=== PATIENT | female | born 1970 | race Caucasian/White ===

== ENCOUNTER 2017-02-25 02:24 | Observation (INO) | payer MEDICAID ==
[2017-02-25] VITALS (7 sets, daily range): BP systolic 113–121; BP diastolic 58–69; PULSE 71–80; RESP 15–18; TEMP 98.5–98.6; O2SAT 98–100
[~2017-02-25] VITALS: Ht 170.2 cm; Wt 104.5 kg
[~2017-02-25 02:24] MED LIST: ASPI81CH3; NEUR300C PO; RISP3TAB2; TRAZ100 PO
[2017-02-25] MEDS ORDERED: TRAZ100T6 PO (02:46)
[2017-02-25] MEDS ORDERED: RISP2TAB2 PO (02:46)
[2017-02-25] MEDS ORDERED: COGE1INJ PO (02:46)
--- NOTE | 2017-02-25 03:15 | PD ---
HPI Chief Complaint: Chest Pain Time Seen by Provider: 03:03 Travel History International Travel<30 days: No Contact w/Intl Traveler<30days: No Traveled to known affect area: No History of Present Illness HPI 46-year-old female came to the emergency room brought by EMS with history of chest pain. Patient says she has had no chest pain 2 weeks and gets worse on exertion like walking. Today she was moving when the pain got worse and she called 911. She points to the left side of her chest. No radiation. Currently her pain is 0 out of 10. No history of shortness of breath or syncopal episode. Patient says she has never had any stress test or any cardiac workup. Patient says both her mom and dad blockages. She is not a smoker. [facility] Past Medical History Narrative Medical List of her past medical, surgical, social and family history was reviewed from the nursing note. Asthma: No Autoimmune Disease: No Blood Disorders: No Bipolar Disorder: Yes Anxiety: Yes Depression: Yes Cancer: No Cardiovascular Problems: No COPD: No Diabetes: No Diminished Hearing: No Endocrine: No Glaucoma: No Genitourinary: No Immune Disorder: No Musculoskeletal: No Neurologic: No Psychiatric: Yes (ANXIETY DISORDER) Respiratory: No Sickle Cell Disease: No Sleep Apnea: No Thyroid Disease: No ?: Not LMP: 01/23/2017 Menopausal: No : 3 Para: 2 Tubal Ligation: Yes Past Surgical History Abdominal Surgery: No Cardiac Surgery: No Section: Yes Ear Surgery: No Endocrine Surgery: No Eye Surgery: No Genitourinary Surgery: No Gynecologic Surgery: Yes (3 C-SECTIONS) Oral Surgery: No Thoracic Surgery: No Social History Alcohol Use: No Tobacco Use: No Substance Use: Yes (CRACK COCAINE X 2 YEARS AGO, SOME MARIJUANA) Allergies-Medications (Allergen,Severity, Reaction): Coded Allergies: Ampicillin (Verified Allergy, Severe, Anaphylaxis, 02/25/17) Prolixin (Verified Allergy, Severe, SOB, 02/25/17) Vistaril (Verified Allergy, Severe, SOB, 02/25/17) Comments List of her allergies reviewed from the nursing note. Reported Meds & Prescriptions Reported Meds & Active Scripts Active Reported Benztropine (Benztropine Mesylate) 0.5 Mg Tab 2 Mg PO BID Trazodone (Trazodone HCl) 100 Mg Tablet 100 Mg PO HS Risperidone 2 Mg Tab 2 Mg PO HS Narrative Medication List of her home medications reviewed from the nursing note. Review of Systems Except as stated in HPI: all other systems reviewed are Neg Physical Exam Narrative GENERAL: Awake, alert, no obvious distress SKIN: Focused skin assessment warm/dry. HEAD: Atraumatic. Normocephalic. EYES: Pupils equal and round. No scleral icterus. No injection or drainage. ENT: No nasal bleeding or discharge. Mucous membranes pink and moist. NECK: Trachea midline. No JVD. CARDIOVASCULAR: Regular rate and rhythm. No murmur appreciated. RESPIRATORY: No accessory muscle use. Clear to auscultation. Breath sounds equal bilaterally. GASTROINTESTINAL: Abdomen soft, non-tender, nondistended. Hepatic and splenic margins not palpable. MUSCULOSKELETAL: No obvious deformities. No clubbing. No cyanosis. No edema. NEUROLOGICAL: Awake and alert. No obvious cranial nerve deficits. Motor grossly within normal limits. Normal speech. PSYCHIATRIC: Appropriate mood and affect; insight and judgment normal. Data Data Last Documented VS Orders Electrocardiogram (02/25/17 03:17) Basic Metabolic Panel (Bmp) (02/25/17 03:17) Ckmb (Isoenzyme) Profile (02/25/17 03:17) Complete Blood Count With Diff (02/25/17 03:17) Magnesium (Mg) (02/25/17 03:17) Prothrombin Time / Inr (Pt) (02/25/17 03:17) Act Partial Throm Time (Ptt) (02/25/17 03:17) Troponin I (02/25/17 03:17) Chest, Single Ap (02/25/17 03:17) Ecg Monitoring (02/25/17 03:17) Bilateral Bp Monitoring (02/25/17 03:17) Iv Access Insert/Monitor (02/25/17 03:17) Oximetry (02/25/17 03:17) Oxygen Administration (02/25/17 03:17) Aspirin Chew (Aspirin Chew) (02/25/17 03:30) Sodium Chloride 0.9% Flush (Ns Flush) (02/25/17 03:30) CKMB (02/25/17 03:25) CKMB% (02/25/17 03:25) Potassium Chloride Eff (K-Lyte Cl Eff) (02/25/17 09:00) Admit Order (Ed Use Only) (02/25/17 04:30) Place In Observation (02/25/17 04:30) Activity Bed Rest With Brp (02/25/17 04:30) Vital Signs (Adult) Q4H (02/25/17 04:30) Cardiac Rhythm .As Directed (02/25/17 04:30) Notify Dr: Other .PRN (02/25/17 04:30) Notify Dr. Parameters (02/25/17 04:30) Resp Oxygen Nasal Cannula (02/25/17 ) Diet Heart Healthy (02/25/17 Breakfast) Ckmb (Isoenzyme) Profile (02/25/17 04:30) Ckmb (Isoenzyme) Profile (02/25/17 07:30) Troponin I (02/25/17 04:30) Troponin I (02/25/17 07:30) Electrocardiogram (02/25/17 04:30) Electrocardiogram (02/25/17 07:30) ^ Obtain (02/25/17 04:30) Sodium Chloride 0.9% Flush (Ns Flush) (02/25/17 04:30) Sodium Chloride 0.9% Flush (Ns Flush) (02/25/17 09:00) Acetaminophen (Tylenol) (02/25/17 04:30) Ondansetron Inj (Zofran Inj) (02/25/17 04:30) Valet Cashier / Telemetry FUENTES.Q8H (02/25/17 04:30) CKMB (02/25/17 06:42) CKMB% (02/25/17 06:42) CKMB (02/25/17 08:56) CKMB% (02/25/17 08:56) Labs MDM Medical Decision Making Medical Screen Exam Complete: Yes Emergency Medical Condition: Yes Medical Record Reviewed: Yes Interpretation(s) Twelve-lead EKG was reviewed by me. Normal sinus rhythm, normal axis, nonspecific ST-T wave changes. Heart rate of 79 beats per Differential Diagnosis Chest pain, ACS, atypical chest pain Narrative Course 4:30 AM blood test results of back and within acceptable limit. Given her story admitted to the chest pain center. Cardiologists will work her up. Patient was given 2 baby aspirin's. Procedures EKG Prior to Arrival: Yes Diagnosis Primary Impression: Chest pain Qualified Code: R07.9 - Chest pain, unspecified type Admitting Information Admitting Physician Requests: Observation iNssa Marcus MD Feb 25, 2017 03:15 Concent Red Cell Distribution Width 12.6 % Platelet Count 280 TH/MM3 Mean Platelet Volume 8.9 FL Neutrophils (%) (Auto) 57.7 % Lymphocytes (%) (Auto) 31.6 % Monocytes (%) (Auto) 9.3 % Eosinophils (%) (Auto) 0.7 % Basophils (%) (Auto) 0.7 % Neutrophils # (Auto) 4.6 TH/MM3 Lymphocytes # (Auto) 2.5 TH/MM3 Monocytes # (Auto) 0.7 TH/MM3 Eosinophils # (Auto) 0.1 TH/MM3 Basophils # (Auto) 0.1 TH/MM3 CBC Comment DIFF FINAL Differential Comment Sodium Level 142 MEQ/L Potassium Level 3.3 MEQ/L Chloride Level 106 MEQ/L Carbon Dioxide Level 27.7 MEQ/L Anion Gap 8 MEQ/L Blood Urea Nitrogen 9 MG/DL Creatinine 0.97 MG/DL Estimat Glomerular Filtration 62 ML/MIN Rate Random Glucose 81 MG/DL Calcium Level 9.0 MG/DL Magnesium Level 2.2 MG/DL Total Creatine Kinase 145 U/L Creatine Kinase MB 1.7 NG/ML Troponin I LESS THAN 0.02 NG/ML MDM Medical Decision Making Medical Screen Exam Complete: Yes Emergency Medical Condition: Yes Medical Record Reviewed: Yes Interpretation(s) Twelve-lead EKG was reviewed by me. Normal sinus rhythm, normal axis, nonspecific ST-T wave changes. Heart rate of 79 beats per Differential Diagnosis Chest pain, ACS, atypical chest pain Narrative Course 4:30 AM blood test results of back and within acceptable limit. Given her story admitted to the chest pain center. Cardiologists will work her up. Patient was given 2 baby aspirin's. Procedures EKG Prior to Arrival: Yes Diagnosis Primary Impression: Chest pain Qualified Code: R07.9 - Chest pain, unspecified type Nissa Marcus MD Feb 25, 2017 03:15
[2017-02-25] MEDS ORDERED: ASPIRIN 81 MG CHEW TAB PO ONE (03:30)
[2017-02-25] MEDS ORDERED: SODIUM CHLORIDE 0.9% FLUSH 10 ML FLUSH IVF PRN (03:30)
[2017-02-25 03:59] LABS: AUTOMATED NEUTROPHIL # 4.6 TH/MM3 (1.8-7.7); BASOPHIL # 0.1 TH/MM3 (0-0.2); BASOPHIL % 0.7 % (0.0-2.0); EOSINOPHIL # 0.1 TH/MM3 (0-0.4); EOSINOPHIL % 0.7 % (0.0-4.0); HEMATOCRIT 38.4 % (35.0-46.0); HEMO FLAGS DIFF FINAL; LYMPH % 31.6 % (9.0-44.0); LYMPHOCYTE # 2.5 TH/MM3 (1.0-4.8); MEAN CELL VOLUME 90.1 FL (80.0-100.0); MEAN CORPUSCULAR HEMOGLOBIN 31.6 PG (27.0-34.0); MEAN CORPUSCULAR HGB CONC 35.1 % (32.0-36.0); MONO % 9.3 % (0.0-8.0); NEUT % 57.7 % (16.0-70.0); PLATELET COUNT 280 TH/MM3 (150-450); RED BLOOD COUNT 4.26 MIL/MM3 (4.00-5.30); RED CELL DISTRIBUTION WIDTH 12.6 % (11.6-17.2)
--- NOTE | 2017-02-25 04:06 | RADRPT ---
EXAM DATE/TIME: 02/25/2017 03:31 [facility] COMPARISON: No previous studies available for comparison. INDICATIONS : Left sided chest pain and shortness of breath. MEDICAL HISTORY : None. SURGICAL HISTORY : None. ENCOUNTER: Initial ACUITY: 3 days PAIN SCORE: 7/10 LOCATION: Left chest FINDINGS: A single view of the chest demonstrates the lungs to be symmetrically aerated without evidence of mas s, infiltrate or effusion. The cardiomediastinal contours are unremarkable. Osseous structures are intact. CONCLUSION: No acute disease. Dylon Benitez MD on February 25, 2017 at 4:04 Board Certified Radiologist. This report was verified electronically.
[2017-02-25 04:12] LABS: ANION GAP 8 MEQ/L (5-15); BICARBONATE 27.7 MEQ/L (21.0-32.0); BLOOD UREA NITROGEN 9 MG/DL (7-18); CHLORIDE 106 MEQ/L (98-107); GLOMERULAR FILTRATION RATE 62 ML/MIN (>89); MAGNESIUM 2.2 MG/DL (1.5-2.5); POTASSIUM 3.3 MEQ/L (3.5-5.1); SODIUM (NA) 142 MEQ/L (136-145)
[2017-02-25 04:15] LABS: CREATINE KINASE 145 U/L (26-192)
[2017-02-25 04:27] LABS: CKMB 1.7 NG/ML (0.5-3.6)
[2017-02-25] MEDS ORDERED: ACETAMINOPHEN 500 MG CPLT PO PRN (04:30)
[2017-02-25] MEDS ORDERED: SODIUM CHLORIDE 0.9% FLUSH 10 ML FLUSH IV FLUSH PRN (04:30)
[2017-02-25] MEDS ORDERED: ONDANSETRON HCL 4 MG/2 ML VIAL IV PRN (04:30)
[2017-02-25 04:37] LABS: APTT (PATIENT) 24.5 SEC (24.3-30.1); PROTHROMBIN TIME - PATIENT 11.4 SEC (9.8-11.6)
[2017-02-25 07:36] LABS: CREATINE KINASE 141 U/L (26-192)
[2017-02-25 07:49] LABS: CKMB 1.4 NG/ML (0.5-3.6)
[2017-02-25] MEDS ORDERED: BENZ0.5T PO ×2 (08:51→09:09)
[2017-02-25] MEDS ORDERED: SODIUM CHLORIDE 0.9% FLUSH 10 ML FLUSH IV FLUSH SCH (09:00)
[2017-02-25] MEDS ORDERED: POTASSIUM CHLORIDE 25 MEQ EFFERVESCENT TAB NG SCH (09:00)
--- NOTE | 2017-02-25 09:21 | HHI.HP ---
HPI Primary Care Physician Non-Staff Chief Complaint Chest pain History of Present Illness This is a 46-year-old female that presents to ED with a complaint of 2 weeks of intermittent chest discomfort. She states it occurs at least once a day. Denies being exertional but patient really does nothing strenuous or exertional. When she has the discomfort it will last on average 3 hours. She had times a short of breath with it. No nausea or diaphoresis. Her symptoms last evening began after having an argument with her boyfriend and grabbed her suitcase and other belongings and was dragging it around on the sidewalk when the discomfort occurred. Denies history of coronary disease. Cannot recall ever having a stress test. Denies recent illness. Denies fevers or chills. Denies . Review of Systems General: Patient denies fevers, chills recent, and recent travel HEENT: Patient denies headache, sore throat, difficulty swallowing. Cardiovascular: Has the chest discomfort as mentioned above. Denies sensation of heart beating rapidly or irregularly. No syncope. Respiratory: She is a time short of breath with the discomfort. Denies inspirational chest discomfort. Denies coughing wheezing or hemoptysis. GI: Patient denies nausea, vomiting, diarrhea, abdominal pain, bloody stools. Musculoskeletal: Patient denies joint pain or edema. Denies calf pain or edema. Neurovascular: Patient denies numbness, tingling, weakness in extremities. Denies headache. Endocrine: Denies polyuria and polydipsia. Hematologic: Denies easy bruising. Skin: Denies rash or itching. Past Family Social History Allergies: Coded Allergies: Ampicillin (Verified Allergy, Severe, Anaphylaxis, 02/25/17) Prolixin (Verified Allergy, Severe, SOB, 02/25/17) Vistaril (Verified Allergy, Severe, SOB, 02/25/17) Past Medical History Schizoaffective disorder. Denies hypertension, hyperlipidemia, diabetes, and CAD. Past Surgical History 3. Reported Medications Reported Meds & Active Scripts Active Reported Benztropine (Benztropine Mesylate) 0.5 Mg Tab 2 Mg PO BID Trazodone (Trazodone HCl) 100 Mg Tablet 100 Mg PO HS Risperidone 2 Mg Tab 2 Mg PO HS Active Ordered Medications Current Medications Medications (Trade) Dose Ordered Sig/Shankar Route Start Time Stop Time Status Last Admin (NS Flush) 2 ml UNSCH PRN IVF 02/25/17 03:30 (K-Lyte Cl Eff) 25 meq DAILY NG 02/25/17 09:00 02/25/17 07:47 (NS Flush) 2 ml UNSCH PRN IV FLUSH 02/25/17 04:30 (NS Flush) 2 ml BID IV FLUSH 02/25/17 09:00 02/25/17 07:50 (Tylenol) 500 mg Q4H PRN PO 02/25/17 04:30 (Zofran Inj) 4 mg Q6H PRN IV 02/25/17 04:30 Family History Her mother at age 63 of a myocardial infarction. Social History Patient quit smoking 4 years ago prior that she smoked one pack of cigarettes daily for about 16 years. Denies alcohol or illicit drugs. She states she is disabled secondary to her mental illness. Physical Exam Vital Signs Vital Signs Date Time Temp Pulse Resp B/P Pulse Ox O2 Delivery O2 Flow Rate FiO2 02/25/17 08:12 98.5 71 16 121/58 100 02/25/17 08:00 75 02/25/17 05:25 74 18 113/69 98 Room Air 02/25/17 04:34 98 02/25/17 02:37 98.6 74 16 119/69 98 02/25/17 02:36 98 Room Air Physical Exam GENERAL: This is a well-nourished, well-developed patient, in no apparent distress. Patient speaks in clear complete sentences. Patient is pleasant. Patient was examined with a female utility assembler at the bedside. HEENT: Head is atraumatic and normocephalic. Neck is supple without lymphadenopathy and trachea is midline. No JVD or carotid bruits. CARDIOVASCULAR: Regular rate and rhythm without murmurs, gallops, or rubs. RESPIRATORY: Clear to auscultation. Breath sounds equal bilaterally. No wheezes , rales, or rhonchi. Chest wall is nontender. No use of accessory muscles. GASTROINTESTINAL: Abdomen is nontender, nondistended. Abdomen soft. No obvious pulsatile mass or bruit. No CVA tenderness. Strong femoral pulses bilaterally. Normal bowel sounds in all quadrants. MUSCULOSKELETAL: Patient is moving upper and lower extremities freely. No calf tenderness or edema, no Homans sign. Strong pulses in upper and lower extremities. NEUROLOGICAL: Patient is alert and oriented. Cranial nerves 2-12 are grossly intact. No focal deficits and speech is clear. SKIN: No rash and turgor is normal. Laboratory Laboratory Tests Test 02/25/17 02/25/17 03:25 06:42 White Blood Count 8.0 Red Blood Count 4.26 Hemoglobin 13.5 Hematocrit 38.4 Mean Corpuscular Volume 90.1 Mean Corpuscular Hemoglobin 31.6 Mean Corpuscular Hemoglobin 35.1 Concent Red Cell Distribution Width 12.6 Platelet Count 280 Mean Platelet Volume 8.9 Neutrophils (%) (Auto) 57.7 Lymphocytes (%) (Auto) 31.6 Monocytes (%) (Auto) 9.3 Eosinophils (%) (Auto) 0.7 Basophils (%) (Auto) 0.7 Neutrophils # (Auto) 4.6 Lymphocytes # (Auto) 2.5 Monocytes # (Auto) 0.7 Eosinophils # (Auto) 0.1 Basophils # (Auto) 0.1 CBC Comment DIFF FINAL Differential Comment Prothrombin Time 11.4 Prothromb Time International 1.0 Ratio Activated Partial 24.5 Thromboplast Time Sodium Level 142 Potassium Level 3.3 Chloride Level 106 Carbon Dioxide Level 27.7 Anion Gap 8 Blood Urea Nitrogen 9 Creatinine 0.97 Estimat Glomerular Filtration 62 Rate Random Glucose 81 Calcium Level 9.0 Magnesium Level 2.2 Total Creatine Kinase 145 141 Creatine Kinase MB 1.7 1.4 Troponin I LESS THAN 0.02 LESS THAN 0.02 Result Diagram: 02/25/17 0325 02/25/17 0325 Imaging Last 24 hours Impressions Chest X-Ray 02/25/17316 Signed Impressions: Service Date/Time: Saturday, February 25, 2017 03:31 - CONCLUSION: No acute disease. Dylon Benitez MD Course EKGs have sinus rhythm without significant ST segment depressions or elevations. Assessment and Plan Assessment and Plan * Chest pain: Patient will continue to have serial cardiac enzymes and EKGs for ruling out purposes. She has been seen by Dr. Brito cardiology in the chest pain center. She will likely undergo a Lexiscan as she states she would not be able to walk on a treadmill and be discharged if the stress test is nonischemic. Patient will need to follow-up with her primary care physician which she states is in [place]. * Schizoaffective disorder: Continue current medication. Patient is stable at this time. She is agreeable to this plan. Patrick Anderson Feb 25, 2017 09:21
[2017-02-25 10:31] LABS: CREATINE KINASE 140 U/L (26-192)
[2017-02-25 10:43] LABS: CKMB 1.3 NG/ML (0.5-3.6)
[2017-02-25] MEDS ORDERED: BENZTROPINE MESYLATE 2 MG TAB PO SCH (11:00)
[2017-02-25] MEDS ORDERED: REGADENOSON INJ 0.4 MG/5 ML SYR ONE (12:26)
--- NOTE | 2017-02-25 13:58 | RADRPT ---
EXAM DATE/TIME: 02/25/2017 11:24 [facility] COMPARISON: No previous studies available for comparison. INDICATIONS : Chest pain with dyspnea. Angina. DOSE: 35.0 mCi Tc99m Myoview at stress. 11.0 mCi Tc99m Myoview at rest. 0.4 mg Lexiscan STRESS SYMPTOMS: Weird feeling and heart racing. EJECTION FRACTION: 64% MEDICAL HISTORY : Schizophrenia. SURGICAL HISTORY : section. ENCOUNTER: Initial ACUITY: 2 weeks PAIN SCALE: 5/10 LOCATION: Substernal chest TECHNIQUE: The patient underwent pharmacologic stress with infusion of prescribed dose. Continuous ECG tracing was monitored during stress. Gated SPECT imaging was performed after stress and conventional SPECT i maging was performed at rest. The examination was performed on a SPECT/CT scanner, both attenuation and non-corrected datasets were reviewed. FINDINGS: DISTRIBUTION: The maximum perfused segment at stress is in the anterolateral wall. PERFUSION STUDY: The pattern of perfusion at stress is within normal limits. GATED STUDY: There is intact wall motion and thickening without hypokinetic or dyskinetic segments. CONCLUSION: 1. No reversibility identified to suggest ischemia. 2. Normal wall motion with ejection fraction 64%. RISK CATEGORY: Low (<1% Annual Mortality Rate) Be Rosado MD on February 25, 2017 at 13:54 Board Certified Radiologist. This report was verified electronically.
--- NOTE | 2017-02-25 14:12 | HHI.DCPOC ---
Discharge Care Plan Diagnosis: (1) Chest pain (2) Schizoaffective disorder (3) Hypokalemia Goals to Promote Your Health * To prevent worsening of your condition and complications * To maintain your health at the optimal level Directions to Meet Your Goals Take your medications as prescribed Follow your dietary instruction Follow activity as directed Keep your appointments as scheduled Take your immunizations and boosters as scheduled If your symptoms worsen call your PCP, if no PCP go to Urgent Care Center or Emergency Room Smoking is Dangerous to Your Health. Avoid second hand smoke Call the 24-hour hour crisis hotline for domestic abuse at Patrick Anderson Feb 25, 2017 14:12
--- NOTE | 2017-02-25 15:33 | EKG ---
Date Performed: 02/25/2017 Time Performed: 06:33:25 PTAGE: 46 years EKG: Sinus rhythm NORMAL ECG Since PREVIOUS TRACING , no significant change noted PREVIOUS TRACIN02/25/2017 02.36 DOCTOR: Greer Brito Interpretating Date/Time 02/25/2017 15:32:22
--- NOTE | 2017-02-25 15:33 | EKG ---
Date Performed: 02/25/2017 Time Performed: 08:49:33 PTAGE: 46 years EKG: Sinus rhythm NORMAL ECG Since PREVIOUS TRACING , no significant change noted PREVIOUS TRACIN02/25/2017 06.33 DOCTOR: Greer Brito Interpretating Date/Time 02/25/2017 15:31:32
--- NOTE | 2017-02-25 15:33 | TR ---
Date Performed: 02/25/2017 Time Performed: 12:31:33 DOCTOR: Greer Brito DRUG LIST: CLINICAL HISTORY: REASON FOR TEST: REASON FOR ENDING: OBSERVATION: CONCLUSION: Lexiscan stress test was performed under standard four minute protocol. Radionuclid e was injected one minute prior to ending the test. No electrocardiographic abormalities were present to suggest ischemia. Nuclear imaging and interpretation are pending. COMMENTS:
--- NOTE | 2017-02-25 15:34 | EKG ---
Date Performed: 02/25/2017 Time Performed: 02:36:26 PTAGE: 46 years EKG: Sinus rhythm NORMAL ECG Since PREVIOUS TRACING , no significant change noted PREVIOUS TRACIN06/29/2009 23.47 DOCTOR: Greer Brito Interpretating Date/Time 02/25/2017 15:32:36
[2017-02-25] MEDS ORDERED: risperiDONE 1 MG TAB PO SCH (21:00)
[2017-02-25] MEDS ORDERED: traZODone HCL 100 MG TAB PO SCH (21:00)
== END 2017-02-25 14:44 | disposition home or self-care (01) ==
LOC: NEPE 02:24 → NEDA 04:33 → NEPHCDU 05:37
PROVIDERS: ADMIT Internal Medicine Interventional Cardiology; ATTEND Internal Medicine Interventional Cardiology
DX: R07.89 Other chest pain (principal); E87.6 Hypokalemia; F25.9 Schizoaffective disorder, unspecified; R06.02 Shortness of breath
CPT/HCPCS: 71010; 78452; 80048; 82550; 82552; 83735; 84484; 85025; 85610; 85730; 93005; 93017; 99285; A9502; G0378; J2785

== ENCOUNTER 2017-05-01 01:06 | Emergency (ER) | payer MEDICAID ==
[~2017-05-01] VITALS: Ht 177.8 cm; Wt 105.0 kg
[~2017-05-01 01:06] MED LIST changes: -ASPI81CH3; +BENZ0.5T PO; -NEUR300C PO; +RISP2TAB2 PO; -RISP3TAB2; -TRAZ100 PO; +TRAZ100T6 PO
[2017-05-01 01:09] VITALS: BP 129/76; PULSE 75; RESP 16; TEMP 98.1; O2SAT 97
[2017-05-01] MEDS ORDERED: SODIUM CHLORIDE 0.9% FLUSH 10 ML FLUSH IVF PRN (01:45)
--- NOTE | 2017-05-01 01:51 | PD ---
HPI Chief Complaint: Chest Pain Time Seen by Provider: 01:41 Travel History International Travel<30 days: No Contact w/Intl Traveler<30days: No Traveled to known affect area: No History of Present Illness HPI 46-year-old female with history of schizoaffective disorder, presents to the ER today because of substernal chest pressures, anxiety, and palpitations. She states that she had moved out of where she was living, states that she has a wound on her bottom that just will not heal. She states that she thinks it was because of where she was living. She currently rates the chest discomfort at a 5 out of 10. She denies any coughing, fevers, vomiting, or other issues. Modifying Factors: None Associated Signs & Symptoms: Chest discomfort, anxiety, palpitations Risk Factors: None PFSH Past Medical History Asthma: No Autoimmune Disease: No Blood Disorders: No Bipolar Disorder: Yes Anxiety: Yes Depression: Yes Cancer: No Cardiovascular Problems: No High Cholesterol: Yes COPD: No Diabetes: No Diminished Hearing: No Endocrine: No Gastrointestinal Disorders: No Glaucoma: No Genitourinary: No Immune Disorder: No Musculoskeletal: No Neurologic: No Psychiatric: Yes (ANXIETY DISORDER) Reproductive: No Respiratory: No Immunizations Current: Yes Sickle Cell Disease: No Sleep Apnea: No Thyroid Disease: No Tetanus Vaccination: < 5 Years Influenza Vaccination: Yes ?: Not Menopausal: No : 3 Para: 2 Tubal Ligation: Yes Past Surgical History Abdominal Surgery: No Cardiac Surgery: No Section: Yes Ear Surgery: No Endocrine Surgery: No Eye Surgery: No Genitourinary Surgery: No Gynecologic Surgery: Yes (3 C-SECTIONS) Insulin Pump: No Neurologic Surgery: No Oral Surgery: No Thoracic Surgery: No Other Surgery: No Family History Family Myocardial Infarction: Yes (Mom of [place] at age 63) Social History Alcohol Use: No Tobacco Use: No Substance Use: Yes (CRACK COCAINE X 2 YEARS AGO, SOME MARIJUANA) Allergies-Medications (Allergen,Severity, Reaction): Coded Allergies: ampicillin (Unverified Allergy, Severe, Anaphylaxis, 05/01/17) fluphenazine (Unverified Allergy, Severe, SOB, 05/01/17) hydroxyzine (Unverified Allergy, Severe, SOB, 05/01/17) Reported Meds & Prescriptions Reported Meds & Active Scripts Active Reported Benztropine (Benztropine Mesylate) 0.5 Mg Tab 2 Mg PO BID Trazodone (Trazodone HCl) 100 Mg Tablet 100 Mg PO HS Risperidone 2 Mg Tab 2 Mg PO HS Review of Systems Except as stated in HPI: all other systems reviewed are Neg Physical Exam Narrative GENERAL: Well-developed anxious appearing middle age female patient in mild distress. Awake and oriented 3. SKIN: Focused skin assessment warm/dry. Small healing wound on buttocks with no underlying fluctuance or erythema. HEAD: Atraumatic. Normocephalic. EYES: Pupils equal and round. No scleral icterus. No injection or drainage. ENT: No nasal bleeding or discharge. Mucous membranes pink and moist. NECK: Trachea midline. No JVD. CARDIOVASCULAR: Regular rate and rhythm. No murmur appreciated. RESPIRATORY: No accessory muscle use. Clear to auscultation. Breath sounds equal bilaterally. GASTROINTESTINAL: Abdomen soft, non-tender, nondistended. Hepatic and splenic margins not palpable. MUSCULOSKELETAL: No obvious deformities. No clubbing. No cyanosis. No edema. NEUROLOGICAL: Awake and alert. No obvious cranial nerve deficits. Motor grossly within normal limits. Normal speech. PSYCHIATRIC: Appropriate mood and affect; insight and judgment normal. Data Data Last Documented VS Vital Signs Date Time Temp Pulse Resp B/P (MAP) Pulse Ox O2 Delivery O2 Flow Rate FiO2 05/01/17 01:54 74 15 99 Room Air 05/01/17 01:53 140/67 (91) 05/01/17 01:09 98.1 Orders Orders Basic Metabolic Panel (Bmp) (05/01/17 01:41) Ckmb (Isoenzyme) Profile (05/01/17 01:41) Complete Blood Count With Diff (05/01/17 01:41) Magnesium (Mg) (05/01/17 01:41) Prothrombin Time / Inr (Pt) (05/01/17 01:41) Act Partial Throm Time (Ptt) (05/01/17 01:41) Troponin I (05/01/17 01:41) Chest, Single Ap (05/01/17 01:41) Ecg Monitoring (05/01/17 01:41) Bilateral Bp Monitoring (05/01/17 01:41) Iv Access Insert/Monitor (05/01/17 01:41) Oximetry (05/01/17 01:41) Oxygen Administration (05/01/17 01:41) Sodium Chloride 0.9% Flush (Ns Flush) (05/01/17 01:45) Labs Laboratory Tests Test 05/01/17 01:48 White Blood Count 8.3 TH/MM3 Red Blood Count 4.65 MIL/MM3 Hemoglobin 15.1 GM/DL Hematocrit 43.3 % Mean Corpuscular Volume 93.2 FL Mean Corpuscular Hemoglobin 32.5 PG Mean Corpuscular Hemoglobin Concent 34.9 % Red Cell Distribution Width 12.7 % Platelet Count 305 TH/MM3 Mean Platelet Volume 8.3 FL Neutrophils (%) (Auto) 48.8 % Lymphocytes (%) (Auto) 38.5 % Monocytes (%) (Auto) 10.0 % Eosinophils (%) (Auto) 1.8 % Basophils (%) (Auto) 0.9 % Neutrophils # (Auto) 4.1 TH/MM3 Lymphocytes # (Auto) 3.2 TH/MM3 Monocytes # (Auto) 0.8 TH/MM3 Eosinophils # (Auto) 0.2 TH/MM3 Basophils # (Auto) 0.1 TH/MM3 CBC Comment DIFF FINAL Differential Comment Prothrombin Time 11.1 SEC Prothromb Time International Ratio 1.0 RATIO Activated Partial Thromboplast Time 24.3 SEC Blood Urea Nitrogen 13 MG/DL Creatinine 0.97 MG/DL Random Glucose 82 MG/DL Calcium Level 8.8 MG/DL Magnesium Level 2.3 MG/DL Sodium Level 141 MEQ/L Potassium Level 3.7 MEQ/L Chloride Level 106 MEQ/L Carbon Dioxide Level 27.6 MEQ/L Anion Gap 7 MEQ/L Estimat Glomerular Filtration Rate 62 ML/MIN Total Creatine Kinase 84 U/L Troponin I LESS THAN 0.02 NG/ML [facility] Medical Decision Making Medical Screen Exam Complete: Yes Emergency Medical Condition: Yes Medical Record Reviewed: Yes Interpretation(s) EKG shows NSR, no ST elevation or depression, and no arrhythmias. No significant T-wave inversions. Laboratory Tests Test 05/01/17 01:48 Monocytes (%) (Auto) 10.0 % (0.0-8.0) Estimat Glomerular Filtration Rate 62 ML/MIN (>89) Troponin I LESS THAN 0.02 NG/ML Differential Diagnosis Chest pains: Dysrhythmias versus anxiety attack versus ACS Narrative Course Chest x-ray did not show any signs of acute pulmonary processes. Vital signs are stable in the ER. EKG did not show significant dysrhythmias. Cardiac enzymes was unremarkable. There are no significant metabolic issues. A review of patient's chart shows that she was here recently for stress testing which was unremarkable or low probability. At this point, symptoms are more likely related to anxiety considering that she is having some social stressors currently, had recently moved out of where she was living, has suitcases with her, and appears to be fairly anxious. On reevaluation at 3:30 AM, patient is resting comfortably and states that her symptoms have subsided. At this point, my plan would be to release the patient with follow-up to primary care doctor for workup as an outpatient. Return for any worsening in symptoms as needed. The plan has been discussed with her and she states understanding. Diagnosis Primary Impression: Chest pain Disposition: 01 DISCHARGE HOME Condition: Stable Rony Ardon MD May 01, 2017 01:51
[2017-05-01 01:52] VITALS: RESP 15; O2SAT 99
[2017-05-01 01:53] VITALS: BP 140/67; PULSE 74; RESP 15; O2SAT 99
[2017-05-01 01:56] LABS: AUTOMATED NEUTROPHIL # 4.1 TH/MM3 (1.8-7.7); BASOPHIL # 0.1 TH/MM3 (0-0.2); BASOPHIL % 0.9 % (0.0-2.0); EOSINOPHIL # 0.2 TH/MM3 (0-0.4); EOSINOPHIL % 1.8 % (0.0-4.0); HEMATOCRIT 43.3 % (35.0-46.0); HEMO FLAGS DIFF FINAL; LYMPH % 38.5 % (9.0-44.0); LYMPHOCYTE # 3.2 TH/MM3 (1.0-4.8); MEAN CELL VOLUME 93.2 FL (80.0-100.0); MEAN CORPUSCULAR HEMOGLOBIN 32.5 PG (27.0-34.0); MEAN CORPUSCULAR HGB CONC 34.9 % (32.0-36.0); NEUT % 48.8 % (16.0-70.0); PLATELET COUNT 305 TH/MM3 (150-450); RED BLOOD COUNT 4.65 MIL/MM3 (4.00-5.30); RED CELL DISTRIBUTION WIDTH 12.7 % (11.6-17.2); WHITE BLOOD COUNT 8.3 TH/MM3 (4.0-11.0)
--- NOTE | 2017-05-01 02:08 | RADRPT ---
EXAM DATE/TIME: 05/01/2017 01:58 [facility] COMPARISON: CHEST SINGLE AP, February 25, 2017, 3:31. INDICATIONS : Chest pain x 1 day MEDICAL HISTORY : Hypercholesterolemia. SURGICAL HISTORY : section. ENCOUNTER: Initial ACUITY: 1 day PAIN SCORE: 7/10 LOCATION: Bilateral chest FINDINGS: A single view of the chest demonstrates the lungs to be symmetrically aerated without evidence of mas s, infiltrate or effusion. The cardiomediastinal contours are unremarkable. Osseous structures are intact. CONCLUSION: Normal examination. Everardo Yepez MD on May 01, 2017 at 2:06 Board Certified Radiologist. This report was verified electronically.
[2017-05-01 02:14] LABS: APTT (PATIENT) 24.3 SEC (24.3-30.1); PROTHROMBIN TIME - PATIENT 11.1 SEC (9.8-11.6)
[2017-05-01 02:26] LABS: ANION GAP 7 MEQ/L (5-15); BICARBONATE 27.6 MEQ/L (21.0-32.0); BLOOD UREA NITROGEN 13 MG/DL (7-18); CHLORIDE 106 MEQ/L (98-107); GLOMERULAR FILTRATION RATE 62 ML/MIN (>89); MAGNESIUM 2.3 MG/DL (1.5-2.5); SODIUM (NA) 141 MEQ/L (136-145)
[2017-05-01 02:31] LABS: CREATINE KINASE 84 U/L (26-192); POTASSIUM 3.7 MEQ/L (3.5-5.1)
--- NOTE | 2017-05-01 11:52 | EKG ---
Date Performed: 05/01/2017 Time Performed: 01:30:07 PTAGE: 46 years EKG: Sinus rhythm NORMAL ECG PREVIOUS TRACING : 02/25/2017 08.49 Compared to prior tracing no significant change DOCTOR: Crescencio Pearl Interpretating Date/Time 05/01/2017 11:52:02
== END 2017-05-01 04:52 | disposition home or self-care (01) ==
LOC: NEPC 01:06
DX: R07.9 Chest pain, unspecified (principal); F25.9 Schizoaffective disorder, unspecified; F41.9 Anxiety disorder, unspecified; R00.2 Palpitations; F31.9 Bipolar disorder, unspecified; E78.00 Pure hypercholesterolemia, unspecified; Z79.899 Other long term (current) drug therapy
CPT/HCPCS: 71010; 80048; 82550; 83735; 84484; 85025; 85610; 85730; 93005; 99284

== ENCOUNTER 2017-07-19 04:23 | Emergency (ER) | payer MEDICAID ==
[~2017-07-19] VITALS: Ht 170.2 cm; Wt 104.5 kg
[~2017-07-19 04:23] MED LIST changes: +TRAZ100T10 PO; -TRAZ100T6 PO
[2017-07-19 04:27] VITALS: BP 109/57; PULSE 75; RESP 16; TEMP 97.4; O2SAT 100
[2017-07-19 04:40] VITALS: O2SAT 100
[2017-07-19] MEDS ORDERED: SODIUM CHLORIDE 0.9% FLUSH 10 ML FLUSH IVF PRN (04:45)
[2017-07-19] MEDS ORDERED: ASPIRIN 81 MG CHEW TAB PO ONE (04:45)
[2017-07-19 04:47] VITALS: BP 114/64; PULSE 75; RESP 16; O2SAT 99
--- NOTE | 2017-07-19 05:02 | PD ---
HPI Chief Complaint: Chest Pain Time Seen by Provider: 04:36 Travel History International Travel<30 days: No Contact w/Intl Traveler<30days: No Traveled to known affect area: No History of Present Illness HPI This is a 46-year-old female with a history of hyperlipidemia, bipolar disorder , schizophrenia tendencies, who presents today with complaints of intermittent chest pain and shortness of breath 1 month. Patient reports that she's been having the symptoms for several weeks now. She reports that 2 days ago she told her roommate that she wanted to be evaluated for her chest pain. He denies any exertional component to the shortness of breath or chest pain. She states it can come and go at any time. She reports it as a pressure-like worse on the right than on the left. There is no radiation. She cannot quantitate the number on the pain scale. PFSH Past Medical History Asthma: No Autoimmune Disease: No Blood Disorders: No Bipolar Disorder: Yes Anxiety: Yes Depression: Yes Cancer: No Cardiovascular Problems: No High Cholesterol: Yes COPD: No Diabetes: No Diminished Hearing: No Endocrine: No Gastrointestinal Disorders: No Glaucoma: No Genitourinary: No Immune Disorder: No Musculoskeletal: No Neurologic: No Psychiatric: Yes (ANXIETY DISORDER) Reproductive: No Respiratory: No Immunizations Current: Yes Sickle Cell Disease: No Sleep Apnea: No Thyroid Disease: No ?: Not Menopausal: No : 3 Para: 2 Tubal Ligation: Yes Past Surgical History Abdominal Surgery: No Cardiac Surgery: No Section: Yes Ear Surgery: No Endocrine Surgery: No Eye Surgery: No Genitourinary Surgery: No Gynecologic Surgery: Yes (3 C-SECTIONS) Insulin Pump: No Neurologic Surgery: No Oral Surgery: No Thoracic Surgery: No Other Surgery: No Social History Alcohol Use: No Tobacco Use: No Substance Use: Yes (CRACK COCAINE X 2 YEARS AGO, SOME MARIJUANA) Allergies-Medications (Allergen,Severity, Reaction): Coded Allergies: ampicillin (Unverified Allergy, Severe, Anaphylaxis, 07/19/17) fluphenazine (Unverified Allergy, Severe, SOB, 07/19/17) hydroxyzine (Unverified Allergy, Severe, SOB, 07/19/17) paroxetine (Verified Allergy, Intermediate, 07/19/17) Reported Meds & Prescriptions Reported Meds & Active Scripts Active Reported Benztropine (Benztropine Mesylate) 0.5 Mg Tab 2 Mg PO BID Trazodone (Trazodone HCl) 100 Mg Tablet 100 Mg PO HS Risperidone 2 Mg Tab 2 Mg PO HS Review of Systems Except as stated in HPI: all other systems reviewed are Neg General / Constitutional: No: Fever, Chills HENT: No: Headaches, Neck Pain Cardiovascular: Positive: Chest Pain or Discomfort (right and left worse on the right), No: Palpitations, Irregular Rhythm Respiratory: Positive: Shortness of Breath, No: Cough, Wheezing Gastrointestinal: No: Nausea, Vomiting, Abdominal Pain Genitourinary: No: Frequency, Dysuria Musculoskeletal: No: Weakness, Pain Neurologic: No: Weakness, Headache Psychiatric: Positive: Anxiety, No: Depression, Suicidal Ideations Physical Exam Narrative GENERAL: Well-nourished, well-developed patient. SKIN: Focused skin assessment warm/dry. HEAD: Normocephalic/atraumatic. EYES: No scleral icterus. No injection or drainage. NECK: Supple, trachea midline. CARDIOVASCULAR: Regular rate and rhythm without murmurs, gallops, or rubs. RESPIRATORY: Breath sounds equal bilaterally. No accessory muscle use. GASTROINTESTINAL: Abdomen soft, non-tender, nondistended. MUSCULOSKELETAL: No cyanosis, or edema. NEUROLOGICAL: Awake and alert. Cranial nerves II through XII intact. Motor grossly within normal limits. Five out of 5 muscle strength in all muscle groups. Normal speech. Data Data Last Documented VS Vital Signs Date Time Temp Pulse Resp B/P (MAP) Pulse Ox O2 Delivery O2 Flow Rate FiO2 07/19/17 04:47 75 16 114/64 (81) 99 Room Air 07/19/17 04:27 97.4 Orders Orders Basic Metabolic Panel (Bmp) (07/19/17 04:36) Ckmb (Isoenzyme) Profile (07/19/17 04:36) Complete Blood Count With Diff (07/19/17 04:36) Magnesium (Mg) (07/19/17 04:36) Prothrombin Time / Inr (Pt) (07/19/17 04:36) Act Partial Throm Time (Ptt) (07/19/17 04:36) Troponin I (07/19/17 04:36) Chest, Single Ap (07/19/17 04:36) Ecg Monitoring (07/19/17 04:36) Bilateral Bp Monitoring (07/19/17 04:36) Iv Access Insert/Monitor (07/19/17 04:36) Oximetry (07/19/17 04:36) Oxygen Administration (07/19/17 04:36) Aspirin Chew (Aspirin Chew) (07/19/17 04:45) Sodium Chloride 0.9% Flush (Ns Flush) (07/19/17 04:45) CKMB (07/19/17 04:50) CKMB% (07/19/17 04:50) Labs Laboratory Tests Test 07/19/17 04:50 White Blood Count 6.3 TH/MM3 Red Blood Count 4.59 MIL/MM3 Hemoglobin 14.7 GM/DL Hematocrit 42.6 % Mean Corpuscular Volume 92.7 FL Mean Corpuscular Hemoglobin 31.9 PG Mean Corpuscular Hemoglobin Concent 34.4 % Red Cell Distribution Width 12.7 % Platelet Count 284 TH/MM3 Mean Platelet Volume 7.8 FL Neutrophils (%) (Auto) 45.2 % Lymphocytes (%) (Auto) 39.5 % Monocytes (%) (Auto) 11.4 % Eosinophils (%) (Auto) 2.9 % Basophils (%) (Auto) 1.0 % Neutrophils # (Auto) 2.9 TH/MM3 Lymphocytes # (Auto) 2.5 TH/MM3 Monocytes # (Auto) 0.7 TH/MM3 Eosinophils # (Auto) 0.2 TH/MM3 Basophils # (Auto) 0.1 TH/MM3 CBC Comment DIFF FINAL Differential Comment Prothrombin Time 10.6 SEC Prothromb Time International Ratio 1.0 RATIO Activated Partial Thromboplast Time 25.0 SEC Blood Urea Nitrogen 12 MG/DL Creatinine 0.93 MG/DL Random Glucose 93 MG/DL Calcium Level 9.0 MG/DL Magnesium Level 2.3 MG/DL Sodium Level 138 MEQ/L Potassium Level 3.8 MEQ/L Chloride Level 105 MEQ/L Carbon Dioxide Level 24.0 MEQ/L Anion Gap 9 MEQ/L Estimat Glomerular Filtration Rate 65 ML/MIN Total Creatine Kinase 389 U/L Creatine Kinase MB 4.9 NG/ML Creatine Kinase MB % 1.3 % Troponin I LESS THAN 0.02 NG/ML MDM Medical Decision Making Medical Screen Exam Complete: Yes Emergency Medical Condition: Yes Differential Diagnosis ACS versus muscular skeletal pain versus pneumonia versus pleurisy Narrative Course 36-year-old female presents with complaints of chest pain and shortness of breath. Patient has a history of anxiety disorder, schizo for any tendencies, depression. Patient's EKG and first set of cardiac enzymes are within normal limits. She was admitted in March of this year and had a negative nuclear stress test. The patient be discharged. Diagnosis Primary Impression: Atypical chest pain Additional Impression: Schizoaffective disorder Disposition: 01 DISCHARGE HOME Condition: Stable Claudy Mendez MD Jul 19, 2017 05:02
[2017-07-19 05:03] LABS: AUTOMATED NEUTROPHIL # 2.9 TH/MM3 (1.8-7.7); BASOPHIL # 0.1 TH/MM3 (0-0.2); EOSINOPHIL # 0.2 TH/MM3 (0-0.4); EOSINOPHIL % 2.9 % (0.0-4.0); HEMATOCRIT 42.6 % (35.0-46.0); HEMOGLOBIN 14.7 GM/DL (11.6-15.3); LYMPH % 39.5 % (9.0-44.0); LYMPHOCYTE # 2.5 TH/MM3 (1.0-4.8); MEAN CELL VOLUME 92.7 FL (80.0-100.0); MEAN CORPUSCULAR HEMOGLOBIN 31.9 PG (27.0-34.0); MEAN CORPUSCULAR HGB CONC 34.4 % (32.0-36.0); MEAN PLATELET VOLUME 7.8 FL (7.0-11.0); MONO % 11.4 % (0.0-8.0); MONOCYTE # 0.7 TH/MM3 (0-0.9); NEUT % 45.2 % (16.0-70.0); PLATELET COUNT 284 TH/MM3 (150-450); RED BLOOD COUNT 4.59 MIL/MM3 (4.00-5.30); RED CELL DISTRIBUTION WIDTH 12.7 % (11.6-17.2); WHITE BLOOD COUNT 6.3 TH/MM3 (4.0-11.0)
--- NOTE | 2017-07-19 05:06 | RADRPT ---
EXAM DATE/TIME: 07/19/2017 04:40 [facility] COMPARISON: CHEST SINGLE AP, May 01, 2017, 1:58. INDICATIONS : Shortness of breath, chest pain. MEDICAL HISTORY : None. SURGICAL HISTORY : None. ENCOUNTER: Initial ACUITY: 1 day PAIN SCORE: 0/10 LOCATION: Bilateral chest FINDINGS: A single view of the chest demonstrates the lungs to be symmetrically aerated without evidence of mas s, infiltrate or effusion. The cardiomediastinal contours are unremarkable. Osseous structures are intact. CONCLUSION: Normal examination. Everardo Yepez MD on July 19, 2017 at 5:04 Board Certified Radiologist. This report was verified electronically.
[2017-07-19 05:14] LABS: PROTHROMBIN TIME - PATIENT 10.6 SEC (9.8-11.6)
[2017-07-19 05:31] LABS: BLOOD UREA NITROGEN 12 MG/DL (7-18); CHLORIDE 105 MEQ/L (98-107); CREATININE 0.93 MG/DL (0.50-1.00); GLOMERULAR FILTRATION RATE 65 ML/MIN (>89); GLUCOSE,RANDOM 93 MG/DL (74-106); MAGNESIUM 2.3 MG/DL (1.5-2.5); SODIUM (NA) 138 MEQ/L (136-145)
[2017-07-19 05:36] LABS: TROPONIN I LESS THAN 0.02 NG/ML (0.02-0.05)
[2017-07-19 06:27] VITALS: BP 104/55; PULSE 62; RESP 16; O2SAT 100
--- NOTE | 2017-07-19 14:07 | EKG ---
Date Performed: 07/19/2017 Time Performed: 04:31:49 PTAGE: 46 years EKG: Sinus rhythm NORMAL ECG WARNING: DATA QUALITY MAY AFFECT INTERPRETATION NO PREVIOUS TRACING DOCTOR: Jose Whelan Interpretating Date/Time 07/19/2017 14:03:31
== END 2017-07-19 07:24 | disposition home or self-care (01) ==
LOC: NEPE 04:23 → UNDOADMOB 05:53 → NEDA 05:53 → NEPE 07:24 → UNDODISOB 07:24
DX: R07.89 Other chest pain (principal); F31.9 Bipolar disorder, unspecified; E78.5 Hyperlipidemia, unspecified; R06.02 Shortness of breath; F41.9 Anxiety disorder, unspecified; R79.89 Other specified abnormal findings of blood chemistry
CPT/HCPCS: 71010; 80048; 82550; 82552; 83735; 84484; 85025; 85610; 85730; 93005; 99284

== ENCOUNTER 2017-07-23 00:58 | Emergency (ER) | payer MEDICAID ==
[~2017-07-23] VITALS: Ht 167.6 cm; Wt 92.0 kg
[2017-07-23 01:06] VITALS: BP 137/74; PULSE 66; RESP 16; TEMP 97.8; O2SAT 100
[2017-07-23 01:29] VITALS: BP 125/74; PULSE 69; RESP 16; TEMP 98; O2SAT 97
[2017-07-23] MEDS ORDERED: SODIUM CHLORIDE 0.9% FLUSH 10 ML FLUSH IV FLUSH PRN (02:15)
--- NOTE | 2017-07-23 02:37 | PD ---
HPI Chief Complaint: Abdominal Pain Time Seen by Provider: 02:35 Travel History International Travel<30 days: No Contact w/Intl Traveler<30days: No Traveled to known affect area: No History of Present Illness HPI 46-year-old female patient presents to the ER today because of 2 days history of intermittent nausea and vomiting, states that she thinks she ate bad food yesterday, states that her roommate also has similar symptoms. She denies any fevers, diarrhea, or other issues. Modifying Factors: None Associated Signs & Symptoms: Nausea and vomiting, possible bad food exposure Risk Factors: Sick contact PFSH Past Medical History Asthma: No Autoimmune Disease: No Blood Disorders: No Bipolar Disorder: Yes Anxiety: Yes Depression: Yes Cancer: No Cardiovascular Problems: No High Cholesterol: Yes COPD: No Diabetes: No Diminished Hearing: No Endocrine: No Gastrointestinal Disorders: No Glaucoma: No Genitourinary: No Immune Disorder: No Musculoskeletal: No Neurologic: No Psychiatric: Yes (ANXIETY DISORDER) Reproductive: No Respiratory: No Immunizations Current: Yes Sickle Cell Disease: No Sleep Apnea: No Thyroid Disease: No Tetanus Vaccination: < 5 Years Influenza Vaccination: Yes ?: Unknown Menopausal: No : 3 Para: 2 Tubal Ligation: Yes Past Surgical History Abdominal Surgery: No Cardiac Surgery: No Section: Yes Ear Surgery: No Endocrine Surgery: No Eye Surgery: No Genitourinary Surgery: No Gynecologic Surgery: Yes (3 C-SECTIONS) Insulin Pump: No Neurologic Surgery: No Oral Surgery: No Thoracic Surgery: No Other Surgery: No Family History Family Myocardial Infarction: Yes (Mom of [place] at age 63) Social History Alcohol Use: No Tobacco Use: No Substance Use: Yes (CRACK COCAINE X 2 YEARS AGO, SOME MARIJUANA) Allergies-Medications (Allergen,Severity, Reaction): Coded Allergies: ampicillin (Unverified Allergy, Severe, Anaphylaxis, 07/23/17) fluphenazine (Unverified Allergy, Severe, SOB, 07/23/17) hydroxyzine (Unverified Allergy, Severe, SOB, 07/23/17) paroxetine (Verified Allergy, Intermediate, 07/23/17) Reported Meds & Prescriptions Reported Meds & Active Scripts Active Reported Benztropine (Benztropine Mesylate) 0.5 Mg Tab 2 Mg PO BID Trazodone (Trazodone HCl) 100 Mg Tablet 100 Mg PO HS Risperidone 2 Mg Tab 2 Mg PO HS Review of Systems Except as stated in HPI: all other systems reviewed are Neg Physical Exam Narrative GENERAL: Well-developed middle age female patient currently in mild distress. Awake and oriented 3. SKIN: Focused skin assessment warm/dry. HEAD: Atraumatic. Normocephalic. EYES: Pupils equal and round. No scleral icterus. No injection or drainage. ENT: No nasal bleeding or discharge. Mucous membranes pink and moist. NECK: Trachea midline. No JVD. CARDIOVASCULAR: Regular rate and rhythm. No murmur appreciated. RESPIRATORY: No accessory muscle use. Clear to auscultation. Breath sounds equal bilaterally. GASTROINTESTINAL: Abdomen soft, non-tender, nondistended. Hepatic and splenic margins not palpable. MUSCULOSKELETAL: No obvious deformities. No clubbing. No cyanosis. No edema. NEUROLOGICAL: Awake and alert. No obvious cranial nerve deficits. Motor grossly within normal limits. Normal speech. PSYCHIATRIC: Appropriate mood and affect; insight and judgment normal. Data Data Last Documented VS Vital Signs Date Time Temp Pulse Resp B/P (MAP) Pulse Ox O2 Delivery O2 Flow Rate FiO2 07/23/17 01:29 98.0 69 16 125/74 (91) 97 Room Air Orders Orders Complete Blood Count With Diff (07/23/17 02:15) Comprehensive Metabolic Panel (07/23/17 02:15) Lipase (07/23/17 02:15) Urinalysis - C+S If Indicated (07/23/17 02:15) Iv Access Insert/Monitor (07/23/17 02:15) Ecg Monitoring (07/23/17 02:15) Oximetry (07/23/17 02:15) Sodium Chloride 0.9% Flush (Ns Flush) (07/23/17 02:15) Labs Laboratory Tests Test 07/23/17 03:20 07/23/17 04:30 White Blood Count 6.5 TH/MM3 Red Blood Count 4.60 MIL/MM3 Hemoglobin 14.9 GM/DL Hematocrit 43.0 % Mean Corpuscular Volume 93.4 FL Mean Corpuscular Hemoglobin 32.3 PG Mean Corpuscular Hemoglobin Concent 34.6 % Red Cell Distribution Width 12.5 % Platelet Count 278 TH/MM3 Mean Platelet Volume 7.9 FL Neutrophils (%) (Auto) 49.6 % Lymphocytes (%) (Auto) 37.4 % Monocytes (%) (Auto) 9.2 % Eosinophils (%) (Auto) 2.7 % Basophils (%) (Auto) 1.1 % Neutrophils # (Auto) 3.2 TH/MM3 Lymphocytes # (Auto) 2.4 TH/MM3 Monocytes # (Auto) 0.6 TH/MM3 Eosinophils # (Auto) 0.2 TH/MM3 Basophils # (Auto) 0.1 TH/MM3 CBC Comment DIFF FINAL Differential Comment Blood Urea Nitrogen 10 MG/DL Creatinine 0.83 MG/DL Random Glucose 90 MG/DL Total Protein 8.0 GM/DL Albumin 4.2 GM/DL Calcium Level 9.1 MG/DL Alkaline Phosphatase 79 U/L Aspartate Amino Transf (AST/SGOT) 20 U/L Alanine Aminotransferase (ALT/SGPT) 25 U/L Total Bilirubin 2.4 MG/DL Sodium Level 139 MEQ/L Potassium Level 4.1 MEQ/L Chloride Level 103 MEQ/L Carbon Dioxide Level 28.4 MEQ/L Anion Gap 8 MEQ/L Estimat Glomerular Filtration Rate 74 ML/MIN Lipase 152 U/L Urine Color YELLOW Urine Turbidity HAZY Urine pH 5.5 Urine Specific [place] 1.021 Urine Protein TRACE mg/dL Urine Glucose (UA) NEG mg/dL Urine Ketones NEG mg/dL Urine Occult Blood NEG Urine Nitrite NEG Urine Bilirubin NEG Urine Urobilinogen LESS THAN 2.0 MG/DL Urine Leukocyte Esterase LARGE MDM Medical Decision Making Medical Screen Exam Complete: Yes Emergency Medical Condition: Yes Medical Record Reviewed: Yes Interpretation(s) Laboratory Tests Test 07/23/17 03:20 07/23/17 04:30 Monocytes (%) (Auto) 9.2 % (0.0-8.0) Total Bilirubin 2.4 MG/DL (0.2-1.0) Estimat Glomerular Filtration Rate 74 ML/MIN (>89) Urine Turbidity HAZY (CLEAR) Urine Leukocyte Esterase LARGE (NEG) Differential Diagnosis Gastroenteritis versus gastritis versus food poisoning versus dehydration versus metabolic issues Narrative Course Abdomen is benign and I do not suspect an acute intra-abdominal process. Lab work was otherwise unremarkable. Urine shows some leuk esterase and there may be some underlying UTI as well. My plan would be to treat her UTI and have her follow-up as needed with primary care doctor. Return for new issues as needed. The plan has discussed with her and she states understanding. Diagnosis Primary Impression: Gastroenteritis Additional Impression: UTI (urinary tract infection) Med/Other Pt SpecificInfo: Prescription(s) given Scripts Nitrofurantoin Monohydrate Macrocrystals (Macrobid) 100 Mg Cap 100 MG PO BID for Infection for 7 Days, #14 CAP 0 Refills Prov: Rony Ardon MD 07/23/17 Ondansetron Odt (Zofran Odt) 4 Mg Tab 4 MG SL Q6HR Y for Nausea/Vomiting, #7 TAB 0 Refills Prov: Rony Ardon MD 07/23/17 Disposition: 01 DISCHARGE HOME Condition: Stable Rony Ardon MD Jul 23, 2017 02:37
[2017-07-23 03:30] LABS: AUTOMATED NEUTROPHIL # 3.2 TH/MM3 (1.8-7.7); BASOPHIL # 0.1 TH/MM3 (0-0.2); BASOPHIL % 1.1 % (0.0-2.0); EOSINOPHIL # 0.2 TH/MM3 (0-0.4); EOSINOPHIL % 2.7 % (0.0-4.0); HEMO FLAGS DIFF FINAL; LYMPH % 37.4 % (9.0-44.0); LYMPHOCYTE # 2.4 TH/MM3 (1.0-4.8); MEAN CELL VOLUME 93.4 FL (80.0-100.0); MEAN CORPUSCULAR HEMOGLOBIN 32.3 PG (27.0-34.0); MEAN CORPUSCULAR HGB CONC 34.6 % (32.0-36.0); MONO % 9.2 % (0.0-8.0); NEUT % 49.6 % (16.0-70.0); PLATELET COUNT 278 TH/MM3 (150-450); RED CELL DISTRIBUTION WIDTH 12.5 % (11.6-17.2); WHITE BLOOD COUNT 6.5 TH/MM3 (4.0-11.0)
[2017-07-23 03:57] LABS: ALT (GPT) 25 U/L (10-53); ANION GAP 8 MEQ/L (5-15); AST (GOT) 20 U/L (15-37); BICARBONATE 28.4 MEQ/L (21.0-32.0); BLOOD UREA NITROGEN 10 MG/DL (7-18); CHLORIDE 103 MEQ/L (98-107); GLOMERULAR FILTRATION RATE 74 ML/MIN (>89); POTASSIUM 4.1 MEQ/L (3.5-5.1); SODIUM (NA) 139 MEQ/L (136-145)
[2017-07-23 04:00] LABS: ALKALINE PHOSPHATASE 79 U/L (45-117); TOTAL BILIRUBIN ADULT 2.4 MG/DL (0.2-1.0)
[2017-07-23 05:13] LABS: BLOOD, URINE NEG (NEG); GLUCOSE,URINE NEG (NEG); KETONE, URINE NEG (NEG); NITRITE,URINE NEG (NEG); PH, URINE 5.5 (5.0-8.5); URINE COLOR YELLOW (YELLW/STRAW)
[2017-07-23] MEDS ORDERED: ZOFR4TAB3 SL (05:20)
[2017-07-23] MEDS ORDERED: MACR100C2 PO (05:20)
[2017-07-23 05:22] LABS: MUCUS URINE MANY /lpf (OCC)
[2017-07-23 05:23] LABS: BACTERIA, URINE MOD /hpf; COMMENT (UR) CULTURE INDICATED; CULTURE IF INDICATED CULTURE INDICATED; RBC, URINE 0-3 /hpf (0-3)
== END 2017-07-23 06:29 | disposition home or self-care (01) ==
LOC: NEPE 00:58
DX: K52.9 Noninfective gastroenteritis and colitis, unspecified (principal); N39.0 Urinary tract infection, site not specified
CPT/HCPCS: 80053; 81001; 83690; 85025; 87086; 99284

== ENCOUNTER 2017-08-21 01:09 | Emergency (ER) | payer MEDICAID ==
[~2017-08-21] VITALS: Ht 162.6 cm; Wt 80.0 kg
[~2017-08-21 01:09] MED LIST changes: +MACR100C2 PO; +ZOFR4TAB3 SL
[2017-08-21 01:23] VITALS: BP 152/82; PULSE 80; RESP 19; TEMP 98.5; O2SAT 97
[2017-08-21] MEDS ORDERED: DICYCLOMINE HCL 20 MG/2 ML VIAL IM ONE (01:30)
[2017-08-21] MEDS ORDERED: ALUMINUM/MAGNESIUM/SIMETH 30 ML CUP PO ONE (01:30)
[2017-08-21] MEDS ORDERED: LIDOCAINE VISCOUS 2% SOLN 15 ML UDC PO ONE (01:30)
--- NOTE | 2017-08-21 01:30 | PD ---
HPI Chief Complaint: GI Complaint Time Seen by Provider: 01:20 Travel History International Travel<30 days: No Contact w/Intl Traveler<30days: No Traveled to known affect area: No History of Present Illness HPI Examined in the presence of a female nurse. 46-year-old female presents via EMS for evaluation. She is complaining of epigastric abdominal pain. Symptoms are mild, onset 3 days ago, no aggravating wrist but improved when she is sleeping. She told the nurse that she was having some nausea but she is denying any nausea to me. She denies nausea, vomiting, dysuria, flank pain, diarrhea or constipation, chest pain or shortness of breath. She told paramedics that the reason why she was calling EMS was because her roommate kicked her out and she needs a place to sleep. Her symptoms are vague and mild. No other complaints. PFSH Past Medical History Asthma: No Autoimmune Disease: No Blood Disorders: No Bipolar Disorder: Yes Anxiety: Yes Depression: Yes Cancer: No Cardiovascular Problems: No High Cholesterol: Yes COPD: No Diabetes: No Diminished Hearing: No Endocrine: No Gastrointestinal Disorders: No Glaucoma: No Genitourinary: No Immune Disorder: No Musculoskeletal: No Neurologic: No Psychiatric: Yes (ANXIETY DISORDER) Reproductive: No Respiratory: No Immunizations Current: Yes Sickle Cell Disease: No Sleep Apnea: No Thyroid Disease: No Tetanus Vaccination: < 5 Years Influenza Vaccination: Yes ?: Not Menopausal: No : 3 Para: 2 Tubal Ligation: Yes Past Surgical History Abdominal Surgery: No Cardiac Surgery: No Section: Yes Ear Surgery: No Endocrine Surgery: No Eye Surgery: No Genitourinary Surgery: No Gynecologic Surgery: Yes (3 C-SECTIONS) Insulin Pump: No Neurologic Surgery: No Oral Surgery: No Thoracic Surgery: No Other Surgery: No Family History Family Myocardial Infarction: Yes (Mom of PR at age 63) Social History Alcohol Use: No Tobacco Use: No Substance Use: Yes (CRACK COCAINE X 2 YEARS AGO, SOME MARIJUANA) Allergies-Medications (Allergen,Severity, Reaction): Coded Allergies: ampicillin (Verified Allergy, Severe, Anaphylaxis, 08/21/17) fluphenazine (Verified Allergy, Severe, SOB, 08/21/17) hydroxyzine (Verified Allergy, Severe, SOB, 08/21/17) paroxetine (Verified Allergy, Intermediate, 07/23/17) Reported Meds & Prescriptions Reported Meds & Active Scripts Active Reported Benztropine (Benztropine Mesylate) 0.5 Mg Tab 2 Mg PO BID Trazodone (Trazodone HCl) 100 Mg Tablet 100 Mg PO HS Risperidone 2 Mg Tab 2 Mg PO HS Review of Systems Except as stated in HPI: all other systems reviewed are Neg Physical Exam Narrative GENERAL: Well-nourished female in no acute distress SKIN: Warm and dry. HEAD: Atraumatic. Normocephalic. EYES: Pupils equal and round. No scleral icterus. No injection or drainage. ENT: No nasal bleeding or discharge. Mucous membranes pink and moist. NECK: Trachea midline. No JVD. CARDIOVASCULAR: Regular rate and rhythm. No murmur appreciated. RESPIRATORY: No accessory muscle use. Clear to auscultation. Breath sounds equal bilaterally. GASTROINTESTINAL: Abdomen soft, minimal epigastric tenderness without guarding. No right upper quadrant tenderness. No CVA tenderness. MUSCULOSKELETAL: No obvious deformities. No clubbing. No cyanosis. No edema. NEUROLOGICAL: Awake and alert. No obvious cranial nerve deficits. Motor grossly within normal limits. Normal speech. PSYCHIATRIC: Appropriate mood and affect; insight and judgment normal. Data Data Last Documented VS Vital Signs Date Time Temp Pulse Resp B/P (MAP) Pulse Ox O2 Delivery O2 Flow Rate FiO2 08/21/17 01:23 98.5 80 19 152/82 (105) 97 Orders Orders Complete Blood Count With Diff (08/21/17 01:25) Comprehensive Metabolic Panel (08/21/17 01:25) Lipase (08/21/17 01:25) Urinalysis - C+S If Indicated (08/21/17 01:25) Dicyclomine Inj (Bentyl Inj) (08/21/17 01:30) Al-Mag Hy-Si 40-40-4 Mg/Ml Liq (Mag-Al P (08/21/17 01:30) Lidocaine 2% Viscous (Xylocaine 2% Visco (08/21/17 01:30) Ed Urine Pregnancytest Poc (08/21/17 01:25) Ed Discharge Order (08/21/17 03:10) Labs Laboratory Tests Test 08/21/17 01:50 White Blood Count 6.7 TH/MM3 Red Blood Count 4.50 MIL/MM3 Hemoglobin 14.2 GM/DL Hematocrit 41.5 % Mean Corpuscular Volume 92.2 FL Mean Corpuscular Hemoglobin 31.7 PG Mean Corpuscular Hemoglobin Concent 34.3 % Red Cell Distribution Width 12.8 % Platelet Count 266 TH/MM3 Mean Platelet Volume 7.9 FL Neutrophils (%) (Auto) 44.8 % Lymphocytes (%) (Auto) 41.3 % Monocytes (%) (Auto) 10.1 % Eosinophils (%) (Auto) 2.9 % Basophils (%) (Auto) 0.9 % Neutrophils # (Auto) 3.0 TH/MM3 Lymphocytes # (Auto) 2.8 TH/MM3 Monocytes # (Auto) 0.7 TH/MM3 Eosinophils # (Auto) 0.2 TH/MM3 Basophils # (Auto) 0.1 TH/MM3 CBC Comment DIFF FINAL Differential Comment Urine Color YELLOW Urine Turbidity HAZY Urine pH 5.5 Urine Specific [place] 1.022 Urine Protein NEG mg/dL Urine Glucose (UA) NEG mg/dL Urine Ketones NEG mg/dL Urine Occult Blood NEG Urine Nitrite NEG Urine Bilirubin NEG Urine Urobilinogen LESS THAN 2.0 MG/DL Urine Leukocyte Esterase LARGE Urine RBC 11 /hpf Urine WBC 6 /hpf Urine Squamous Epithelial Cells 2 /hpf Urine Mucus FEW /lpf Microscopic Urinalysis Comment CULT NOT INDICATED Blood Urea Nitrogen 10 MG/DL Creatinine 0.81 MG/DL Random Glucose 87 MG/DL Total Protein 7.6 GM/DL Albumin 3.8 GM/DL Calcium Level 9.0 MG/DL Alkaline Phosphatase 62 U/L Aspartate Amino Transf (AST/SGOT) 49 U/L Alanine Aminotransferase (ALT/SGPT) 30 U/L Total Bilirubin 1.0 MG/DL Sodium Level 137 MEQ/L Potassium Level 5.2 MEQ/L Chloride Level 106 MEQ/L Carbon Dioxide Level 26.4 MEQ/L Anion Gap 5 MEQ/L Estimat Glomerular Filtration Rate 76 ML/MIN Lipase 129 U/L [facility] Medical Decision Making Medical Screen Exam Complete: Yes Emergency Medical Condition: Yes Medical Record Reviewed: Yes Differential Diagnosis Malingering, gastritis, pancreatitis, peptic ulcer disease, biliary colic, colitis Narrative Course Physical examination is reassuring. The patient has very mild epigastric tenderness to palpation without guarding. Lab work was performed revealing a potassium 5.2, otherwise unremarkable. The patient was given Bentyl and GI cocktail. She is stable for discharge. Diagnosis Primary Impression: Abdominal pain Additional Instructions: Follow-up with primary care physician as needed. Return for any emergent medical conditions. Med/Other Pt SpecificInfo: No Change to Meds Disposition: 01 DISCHARGE HOME Condition: Stable Jostin Dodson Aug 21, 2017 01:30
[2017-08-21 02:15] LABS: BASOPHIL # 0.1 TH/MM3 (0-0.2); BASOPHIL % 0.9 % (0.0-2.0); EOSINOPHIL # 0.2 TH/MM3 (0-0.4); EOSINOPHIL % 2.9 % (0.0-4.0); HEMATOCRIT 41.5 % (35.0-46.0); HEMOGLOBIN 14.2 GM/DL (11.6-15.3); LYMPH % 41.3 % (9.0-44.0); LYMPHOCYTE # 2.8 TH/MM3 (1.0-4.8); MEAN CELL VOLUME 92.2 FL (80.0-100.0); MEAN CORPUSCULAR HEMOGLOBIN 31.7 PG (27.0-34.0); MEAN CORPUSCULAR HGB CONC 34.3 % (32.0-36.0); MEAN PLATELET VOLUME 7.9 FL (7.0-11.0); MONO % 10.1 % (0.0-8.0); MONOCYTE # 0.7 TH/MM3 (0-0.9); NEUT % 44.8 % (16.0-70.0); PLATELET COUNT 266 TH/MM3 (150-450); RED CELL DISTRIBUTION WIDTH 12.8 % (11.6-17.2); WHITE BLOOD COUNT 6.7 TH/MM3 (4.0-11.0)
[2017-08-21 02:22] LABS: BILIRUBIN, URINE NEG (NEG); BLOOD, URINE NEG (NEG); GLUCOSE,URINE NEG (NEG); KETONE, URINE NEG (NEG); MUCUS URINE FEW /lpf (OCC); NITRITE,URINE NEG (NEG); PH, URINE 5.5 (5.0-8.5); SQUAMOUS EPITHELIAL CELL URINE 2 /hpf (0-5); URINE COLOR YELLOW (YELLW/STRAW); URINE LEUKOCYTE ESTERASE LARGE (NEG)
[2017-08-21 02:37] LABS: ALKALINE PHOSPHATASE 62 U/L (45-117); TOTAL PROTEIN 7.6 GM/DL (6.4-8.2)
[2017-08-21 03:06] LABS: ALBUMIN 3.8 GM/DL (3.4-5.0); ALT (GPT) 30 U/L (10-53); AST (GOT) 49 U/L (15-37); BICARBONATE 26.4 MEQ/L (21.0-32.0); BLOOD UREA NITROGEN 10 MG/DL (7-18); CHLORIDE 106 MEQ/L (98-107); CREATININE 0.81 MG/DL (0.50-1.00); GLOMERULAR FILTRATION RATE 76 ML/MIN (>89); GLUCOSE,RANDOM 87 MG/DL (74-106); LIPASE 129 U/L (73-393); SODIUM (NA) 137 MEQ/L (136-145)
== END 2017-08-21 08:00 | disposition home or self-care (01) ==
LOC: NEPD 01:09
DX: R10.13 Epigastric pain (principal); R11.0 Nausea; F31.9 Bipolar disorder, unspecified; F41.9 Anxiety disorder, unspecified; E78.00 Pure hypercholesterolemia, unspecified; Z79.899 Other long term (current) drug therapy; Z88.0 Allergy status to penicillin; Z88.8 Allergy status to other drugs, medicaments and biological substances
CPT/HCPCS: 80053; 81001; 83690; 84703; 85025; 96372; 99284; J0500